=== PATIENT | male | born 1955 | race Caucasian/White ===

== ENCOUNTER → 2016-07-26 | Outpatient (CLI) | payer OTHER ==
[~2016-07-26] MED LIST: ADULT LOW DOSE81 MG PO; CLARITIN10 MG PO; FENOFIBRATE145 MG PO; LIVALO4 MG PO; NIACIN ER1000 MG PO; OXYCONTIN20 MG PO; VITAMIN D50000 UNIT PO; XARELTO10 MG PO
== END ==
LOC: CT 08:55
DX: R91.8 Other nonspecific abnormal finding of lung field (principal); K76.0 Fatty (change of) liver, not elsewhere classified; K80.20 Calculus of gallbladder without cholecystitis without obstruction
CPT/HCPCS: 71270; J7050; Q9962

== ENCOUNTER → 2021-11-07 | Day surgery (SDC) | payer BC, MEDICARE ==
[~2021-11-07] MED LIST changes: +CRESTOR10 MG PO; +ELIQUIS2.5 MG PO; +GLUCOTROL5 MG PO; +MEN'S MULTI-VI1 EACH PO; +METFORMIN HCL1000 MG PO; +MULTI-VITAMIN1 EACH PO; +OZEMPIC1 MG/0.71 SQ; +PERCOCET 5/325 T1 EA PO; +SLO-NIACIN500 MG PO
== END | disposition home or self-care (01) ==
LOC: OR 06:42
DX: D64.9 Anemia, unspecified (principal); D12.2 Benign neoplasm of ascending colon; D12.5 Benign neoplasm of sigmoid colon; K31.9 Disease of stomach and duodenum, unspecified; K21.9 Gastro-esophageal reflux disease without esophagitis; E78.1 Pure hyperglyceridemia; G47.33 Obstructive sleep apnea (adult) (pediatric); E11.9 Type 2 diabetes mellitus without complications; Z88.8 Allergy status to other drugs, medicaments and biological substances; Z87.891 Personal history of nicotine dependence; Z79.4 Long term (current) use of insulin; Z79.899 Other long term (current) drug therapy
CPT/HCPCS: 82962; J2001; J2704; J3010